=== PATIENT | male | born 1980 | race Caucasian/White ===

== ENCOUNTER 2018-08-04 18:31 | Emergency (ER) | payer SELFPAY ==
[2018-08-04 18:33] VITALS: BP 140/81; PULSE 101; RESP 19; TEMP 36.4; O2SAT 99; BMI 30.7
--- NOTE | 2018-08-04 18:39 | EKG12_ITS ---
Test Reason : CP Blood Pressure : / mmHG Vent. Rate : 078 BPM Atrial Rate : 078 BPM P-R Int : 146 ms QRS Dur : 096 ms QT Int : 370 ms P-R-T Axes : 079 046 037 degrees QTc Int : 421 ms Normal sinus rhythm Low voltage QRS Confirmed by RICKY BHAKTA, CHRISTIAN ([id number]), video editor URSZULA VALENTIN ([id number]) on 08/07/2018 1:19:43 PM Referred By: RANDELL Confirmed By:CHRISTIAN GARCÍA MD
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
[2018-08-04 19:13] LABS: Anion Gap 7 (5-15); BUN 13 mg/dL (7-18); BUN/Creat Ratio 12.1 RATIO (10-20); Chloride 103 mmol/L (98-107); Creatinine, Serum 1.07 mg/dL (0.70-1.30); EST Glomerular Filtration Rate 82 mL/min (>60); Est Glom Filt Rate - Afr Amer 99 mL/min (>60); Estimated Creatinine Clearance 84.47 ml/min; Glucose 102 mg/dL (74-106); Potassium 4.5 mmol/L (3.5-5.1); Prolactin 4.3 ng/mL; Sodium Level 138 mmol/L (136-145)
[2018-08-04 19:25] LABS: Lactic Acid 2.3 mmol/L (0.4-2.0)
--- NOTE | 2018-08-04 19:25 | ED.RN ---
notifed Dr. Herrera of lactic acid 2.3
--- NOTE | 2018-08-04 19:48 | ED.RN ---
PT C/O CP. DR MEJIAS NOTIFIED. EKG ORDERED
--- NOTE | 2018-08-04 19:49 | EKG12_ITS ---
Test Reason : UNRESPONSIVE Blood Pressure : / mmHG Vent. Rate : 078 BPM Atrial Rate : 078 BPM P-R Int : 128 ms QRS Dur : 100 ms QT Int : 374 ms P-R-T Axes : -17 064 045 degrees QTc Int : 426 ms Normal sinus rhythm with sinus arrhythmia Incomplete right bundle branch block Borderline ECG Confirmed by RICKY BHAKTA, CHRISTIAN ([id number]), research editor URSZULA VALENTIN ([id number]) on 08/07/2018 1:20:02 PM Referred By: RANDELL Confirmed By:CHRISTIAN GARCÍA MD
[2018-08-04 19:52] VITALS: BP 137/72; PULSE 81; RESP 22; O2SAT 93
[2018-08-04 19:53] LABS: Absolute Lymphocyte Count 5.36 X10^3/ul (0.83-4.51); Absolute Neutrophil Count 8.9 X10^3/uL (2.0-7.7); Basophil# 0.06 X10^3/uL; Basophil% 0.4 % (0-1); Differential Indicated SCAN CRITERIA MET; Eosinophil# 0.37 X10^3/uL; Eosinophils% 2.3 % (0-5); Hematocrit 46.3 % (40-54); Hemoglobin 15.6 g/dl (13.0-16.5); Lymphocyte # 5.36 X10^3/ul (4.0); Lymphocyte % 33.7 % (19-41); Mean Corp Hgb Conc 33.7 g/gl (32-36); Mean Corpuscular Hgb 28.4 pg (27.0-32.0); Mean Corpuscular Volume 84.2 fL (80-94); Mean Platelet Vol. 10.4 fl (6.2-12.0); Monocyte# 1.17 X10^3/uL; Monocyte% 7.4 % (0-10); Neutrophil # 8.86 X10^3/uL (2.7-7.7); Neutrophil % 55.7 % (47-70); POSITIVE COUNT NO; POSITIVE DIFFERENTIAL YES; POSITIVE MORPHOLOGY NO; Platelet Count 323 K/mm3 (150-450); RBC Distribution Width CV 14.4 % (11.6-14.6); RBC Distribution Width SD 44.5 fl (35.1-43.9); White Blood Count 15.9 K/mm3 (4.4-11.0)
[2018-08-04 19:58] LABS: Amphetamine Urine VISTA NEGATIVE (<1000 ng/mL); Barbiturate Urine VISTA NEGATIVE (< 200 ng/mL); Benzodiazepine Urine VISTA NEGATIVE (< 200 ng/mL); Cocaine Urine VISTA NEGATIVE (< 300 ng/mL); Ecstacy Urine VISTA NEGATIVE (< 500 ng/mL); Methadone Urine VISTA NEGATIVE (< 300 ng/mL); PCP Urine VISTA NEGATIVE (< 25 ng/mL); THC Urine VISTA NEGATIVE (< 50 ng/mL); Vista UDS pH Range 6
[2018-08-04 20:05] VITALS: BP 138/86; PULSE 79; RESP 10; O2SAT 99
[2018-08-04 20:09] LABS: Differential Comment SCANNED
[2018-08-04 20:40] VITALS: BP 132/86; PULSE 80; RESP 22; O2SAT 96
[2018-08-04 22:53] LABS: Reflex Lactate? Y
== END 2018-08-04 20:41 | disposition home or self-care (01) ==
PROVIDERS: Emergency Provider Emergency Medicine
DX: F44.5 Conversion disorder with seizures or convulsions (principal); F10.129 Alcohol abuse with intoxication, unspecified; Y90.9 Presence of alcohol in blood, level not specified; I45.10 Unspecified right bundle-branch block; F32.9 Major depressive disorder, single episode, unspecified; F41.9 Anxiety disorder, unspecified; F17.200 Nicotine dependence, unspecified, uncomplicated
CPT/HCPCS: 80048; 80307; 80320; 83605; 84146; 85025; 93005; 99285; A4216; G0480

== ENCOUNTER 2020-12-15 12:50 | Emergency (ER) | payer OTHER, SELFPAY ==
[2020-12-15 12:50] VITALS: BP 136/79; PULSE 96; RESP 16; TEMP 36.3; O2SAT 96; BMI 31.4
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
--- NOTE | 2020-12-15 14:00 | ED.RN ---
THIS RN IN WITH PT TO SIT FOR A BIT. PT STATES THERE IS NO WAY I AM STAYING HERE OR GETTING TRANSFERRED TO A PSYCH FACILITY PT STATES THAT PSYCHIATRIST CAN SHOVE EVERYTHING UP HIS ASS. PT STATES I WILL LIE ABOUT EVERYTHING
--- NOTE | 2020-12-15 14:07 | ED.RN ---
THE MEDICAL CENTER DEPARTMENT DOES SHOW PICTURE OF PT WITH NOOSE AROUND HIS NECK SITTING ON THE GROUND. NOOSE REMAINED HANGING WHEN POLICE ARRIVED. PT STATES HE TOOK IT OFF. PT STATES THATS NOT ME IN THE PICTURE. CLOTHING AND PICTURE MATCHES PT
[2020-12-15 14:08] LABS: Amphetamine Urine VISTA POSITIVE (<1000 ng/mL); Barbiturate Urine VISTA NEGATIVE (< 200 ng/mL); Benzodiazepine Urine VISTA NEGATIVE (< 200 ng/mL); Cocaine Urine VISTA NEGATIVE (< 300 ng/mL); Ecstacy Urine VISTA NEGATIVE (< 500 ng/mL); Methadone Urine VISTA NEGATIVE (< 300 ng/mL); PCP Urine VISTA NEGATIVE (< 25 ng/mL); THC Urine VISTA POSITIVE (< 50 ng/mL); Vista UDS pH Range 5
--- NOTE | 2020-12-15 14:08 | ED.RN ---
PT NOW BECOMING AGITATED. PT STATES FUCK THIS AND FUCK THAT MULTIPLE TIMES
[2020-12-15 14:12] LABS: Absolute Lymphocyte Count 2.32 X10^3/uL (0.83-4.51); Absolute Neutrophil Count 9.3 X10^3/uL (2.0-7.7); Basophil# 0.05 X10^3/uL; Basophil% 0.4 % (0-1); Eosinophil# 0.22 X10^3/uL; Eosinophils% 1.7 % (0-5); Hematocrit 47.3 % (40-54); Hemoglobin 15.1 g/dL (13.0-16.5); Lymphocyte # 2.32 X10^3/ul (0.83-4.51); Lymphocyte % 17.6 % (19-41); Mean Corp Hgb Conc 31.9 g/dL (32-36); Mean Corpuscular Volume 84.6 fL (80-94); Monocyte# 1.26 X10^3/uL; Monocyte% 9.6 % (0-10); NRBC Flagged by Analyzer 0 % (0-5); Neutrophil # 9.25 X10^3/uL (2.7-7.7); Neutrophil % 70.3 % (47-70); Platelet Count 299 K/mm3 (150-450); RBC Distribution Width CV 14.6 % (11.6-14.6); RBC Distribution Width SD 44.5 fl (35.1-43.9); Red Blood Count 5.59 M/mm3 (4.6-6.2); White Blood Count 13.2 K/mm3 (4.4-11.0)
[2020-12-15 14:25] LABS: Anion Gap 10 (5-15); BUN 11 mg/dL (7-18); BUN/Creat Ratio 12.8 RATIO (10-20); Calcium,Total 9.1 mg/dL (8.5-10.1); Chloride 108 mmol/L (98-107); Creatinine, Serum 0.86 mg/dL (0.70-1.30); EST Glomerular Filtration Rate 104 mL/min (>60); Est Glom Filt Rate - Afr Amer 126 mL/min (>60); Estimated Creatinine Clearance 103.04 ml/min; Glucose 87 mg/dL (74-106); Potassium 3.8 mmol/L (3.5-5.1); Sodium Level 141 mmol/L (136-145)
--- NOTE | 2020-12-15 14:48 | CM.ED ---
SOCIAL WORK Referral faxed and called to [facility]. Pending acceptance at this time. Gm [place], HEALTH POLICY ANALYST, PLANT OPERATOR HELPER
[2020-12-15 15:00] VITALS: RESP 14
--- NOTE | 2020-12-15 15:40 | CM.ED ---
SOCIAL WORK Call from [facility] who reports able to accept patient pending liver panel. Updated staff. Waiting results. Gm [place], CHEMISTRY SPECIALIST, QUARTER FOLDER
[2020-12-15 16:00] VITALS: RESP 14
[2020-12-15 16:16] LABS: AST(SGOT) 13 U/L (15-37); Alanine Aminotransfer ALT/SGPT 23 U/L (16-61); Albumin, Serum 3.3 g/dL (3.2-5.0); Alkaline Phosphatase 87 U/L (45-117); Bilirubin, Direct 0.06 mg/dL (0.00-0.30); Globulin 3.7 g/dL (2.2-4.2)
--- NOTE | 2020-12-15 16:24 | CM.ED ---
SOCIAL WORK Patient accepted to [facility] by Song Burgos NP to the Dual Dx Unit. Nurse to call report to . Transport scheduled through [facility], ETA 90-2 hours (6-6:30p case picker). Staff updated. Copy of [place] faxed to [facility] per request. Plan: [facility] Gm [place], BOTTOM FINISHER, OUTSIDE PLANT ENGINEER
[2020-12-15 17:41] VITALS: BP 137/88; PULSE 75; RESP 16; TEMP 36.1; O2SAT 95
[2020-12-15 18:00] VITALS: RESP 18
--- NOTE | 2020-12-15 18:01 | ED.RN ---
Pt. became agitated after this nurse took VS. Pt. stated that [facility] wants to send me to [facility] for a psych eval. You should have just let me go. Pt. then proceeded to become more agitated while on the phone with significant other, raising voice.
--- NOTE | 2020-12-15 18:24 | CM.ED ---
SOCIAL WORK Patient escalated per nursing. This worker to room. Patient de-escalated while talking to this worker and on phone. This worker assisted patient in calling mother. Patient calm and cooperative at this time waiting for transport. Patient gave permission for this worker to provide and mother with contact information for [facility]. Gm Montana MSW, STORE PLANNER
[2020-12-15 19:06] VITALS: BP 148/72; PULSE 80; RESP 16; O2SAT 99
== END 2020-12-15 19:09 ==
PROVIDERS: Emergency Medicine; Emergency Provider Emergency Medicine
DX: F32.9 Major depressive disorder, single episode, unspecified (principal); R45.851 Suicidal ideations; F17.210 Nicotine dependence, cigarettes, uncomplicated
CPT/HCPCS: 80048; 80076; 80307; 82077; 85025; 87426; 99285; J3486